=== PATIENT | male | born 1980 | race Caucasian/White ===

== ENCOUNTER → 2024-07-30 09:50 | Outpatient (REF) | payer OTHER, SELFPAY | LOC: HWRAD 09:50 | PROVIDERS: ATTENDING PHYSICIAN Nurse Practitioner Family | DX: R74.8 Abnormal levels of other serum enzymes (principal) | CPT/HCPCS: 76700 ==

== ENCOUNTER → 2024-09-03 07:42 | Outpatient (REF) | payer OTHER, SELFPAY | LOC: RAD 07:42 | PROVIDERS: ATTENDING PHYSICIAN Nurse Practitioner Family; FAMILY PHYSICIAN Family Medicine | DX: R10.9 Unspecified abdominal pain (principal) | CPT/HCPCS: 74177; Q9967 ==

== ENCOUNTER 2025-04-16 22:46 | Emergency (ER) | payer BC, SELFPAY ==
[2025-04-16 22:51] VITALS: BP 132/80
--- NOTE | 2025-04-17 02:33 | ED.GENMED ---
History of Present Illness
General
Chief Complaint: Eye Problems
Source: patient
Exam Limitations: none
Time Seen by Provider: 04/17/25 02:19
Nursing documentation reviewed up to this point in time: agreed with
History of Present Illness
History of Present Illness:
Note:
CHIEF COMPLAINT(S)
Irritation and burning sensation in the left eye.
HISTORY OF PRESENT ILLNESS
The patient is a 45-year-old male presenting with a complaint of irritation and a constant burning sensation in the left eye, which began yesterday. The patient denies any discharge from the eye. He describes the eye as feeling dry and sore. There
is no use of contact lenses. The patient denies recent coughing but admits to experiencing some allergies. The patient attempted to alleviate symptoms with eye drops, which reportedly increased discomfort. Upon examination, inflammation was noted,
and topical anesthetic drops (tetracaine) were applied to the eye for numbing, which initially caused burning but subsequently provided relief.
PHYSICAL EXAM
General: Alert, no acute distress.
Ocular: scleral injection bilateral, perrla, eomi, no fb or fluorescin uptake.
Skin: Warm, dry.
Head: Normocephalic, atraumatic.
Neck: Supple, trachea midline.
Eye, Ears, Nose, Mouth, and Throat: Oral mucosa moist.
Cardiovascular: Normal peripheral perfusion. No edema.
Respiratory: Respirations are non-labored.
Gastrointestinal: Abdomen nondistended.
Back: Normal range of motion, normal alignment.
Musculoskeletal: Normal range of motion, normal strength.
Neurological: Alert and oriented to person, place, time, and situation. No focal neurological deficit observed.
Psychiatric: Cooperative, appropriate mood and affect.
PLAN
The patient will be treated with antibiotic eye drops for the left eye. The patient was advised against rubbing the eye and was educated on the proper administration of eye drops. Follow-up with an gel coat sprayer was recommended if symptoms do not
improve.
DIFFERENTIAL DIAGNOSIS
The Differential Diagnosis includes, in no particular order and is not limited to:
1. Conjunctivitis
2. Corneal abrasion
3. Foreign body in the eye
4. Dry eye syndrome
5. Allergic conjunctivitis
6. Uveitis
7. Blepharitis
8. Corneal ulcer
9. Episcleritis
10. Keratitis
CARE-UPDATE
04/17/25 - 02:40
Patient exhibits no foreign bodies or conjunctival abrasions. Notable intense bilateral thorough injection observed. No forcing uptake. Treatment plan includes application of rickermicine ointment. Schedule follow-up appointment with ophthalmology
for further evaluation and management.
Disposition:
SUMMARY OF ENCOUNTER
The patient, a 45-year-old male, presented with irritation and a burning sensation in the left eye, which began yesterday. There is no discharge noted from the eye, but it feels dry and sore. The patient denies using contact lenses. They have
experienced some allergies recently. Eye drops increased discomfort when used, and upon examination, inflammation was observed. Topical tetracaine drops were applied initially causing burning but then provided relief.
DISPOSITION
Discharge.
ASSESSMENT
The patient has been diagnosed with bilateral conjunctivitis based on the symptoms presented and the physical examination findings.
EMERGENCY TREATMENTS ADMINISTERED
Topical anesthetic drop, tetracaine, was used for numbing the eye upon examination.
PLAN
The patient will be treated with antibiotic eye ointment, specifically chloramphenicol (Orthomacin) ointment, prescribed for the left eye, to address the conjunctivitis. Advised to refrain from rubbing the eye and instructed on the proper
administration of the ointment. Follow-up with an gel coat sprayer is recommended if symptoms do not improve.
PATIENT EDUCATION AND COUNSELING
The patient was educated on the importance of not rubbing the eyes and the correct administration of the prescribed eye ointment. Information regarding potential allergic reactions or worsening symptoms was provided, along with instructions to seek
further medical care if needed.
FOLLOW-UP INSTRUCTIONS
The patient should arrange a follow-up with an gel coat sprayer if symptoms persist or worsen.
MEDICATION RECONCILIATION
A prescription for chloramphenicol (Orthomacin) eye ointment has been given for treating the infection.
MEDICAL DECISION MAKING
-Chronic conditions affecting care: The differential diagnosis included conjunctivitis, corneal abrasion, foreign body in the eye, dry eye syndrome, allergic conjunctivitis, uveitis, blepharitis, corneal ulcer, episcleritis, and keratitis. Based on
the examination, bilateral conjunctivitis was determined to be the most likely diagnosis.
-Data:
Category 1
External record reviewed: I reviewed the diagnosis, bilateral conjunctivitis, and recommended follow-up with ophthalmology.
Category 3
Discussion of management with the patients primary care provider is implied, with instructions for an gel coat sprayer follow-up.
-Risk:
Prescription medication was prescribed�chloramphenicol (Orthomacin) eye ointment. The patient was determined to be safe for outpatient management with close follow-up.
DIAGNOSIS
Bilateral conjunctivitis (H10.33).
Phy Exam
Physical Exam
Physical Exam:
.
Course
Orders/Labs/Results
Orders:
Orders
04/17/25 02:33
Visual Acuity- Treatment ONCE
Erythromycin (Ilotycin) [Erythromycin 0.5% Ophthalmic Ointment] See Dose Instructions OPHTH NOW STA
Vital Signs
Initial and Last Documented VS:
Initial Vital Signs
Temp Pulse Resp BP Pulse Ox
98.5 F 82 16 132/80 97
04/16/25 22:51 04/16/25 22:51 04/16/25 22:51 04/16/25 22:51 04/16/25 22:51
Last Documented Vital Signs
Temp Pulse Resp BP Pulse Ox
98.5 F 82 18 132/80 97
04/16/25 22:51 04/16/25 22:51 04/17/25 00:01 04/16/25 22:51 04/17/25 02:33
*Pulse Oximetry
SaO2: 97
Oxygen Mode of Delivery: Room air
Patient hypoxic: no
*Critical Care Note
Total Time (30-74mins, 75-104mins- exclusive of procedures): Not Applicable
ED Attending Note
-
Portions of this chart may have been created with voice recognition software.� Occasional wrong word or��sound alike� substitutions may have occurred due to the inherent limitations of voice recognition software.
Discharge Plan
Departure
Patient Disposition: Home (Routine Discharge)
Date of Disposition: 04/17/25
Time of Disposition: 02:35
Patient with high blood pressure during this ER visit?: Yes
Condition: Good
Discharge Problem:
Bilateral conjunctivitis
Instructions: Conjunctivitis (Pinkeye) (DC)
Prescriptions:
New
erythromycin 5 mg/gram (0.5 %) ointment
0.5 inch ophthalmic (eye) TID 7 Days Qty: 3.5 0RF
Referrals:
Zeenat Cruz CRNP [Family Provider, Family Practice]
Talha Goldstein MD [Active, Ophthalmology] - Call in 1-3 days for appt
Interventions
Interventions:
*Risk Screen - Suicide Last Done: 04/16/25 22:51
*General Assessment Last Done: 04/17/25 00:01
*Neglect/Abuse Screening Last Done: 04/16/25 22:51
*ED- Fall Risk Assessment Last Done: 04/16/25 22:51
*ED COVID-19 Vaccine History Last Done: 04/16/25 22:51
Discharge Date and Time
Print Language: LATVIAN
[2025-04-17] MEDS: ERYTHROMYCIN 0.5% OPHTHALMIC OINTMENT 1 APPLIC OPHTH (02:51)
[2025-04-17 02:57] VITALS: BP 138/72
== END 2025-04-17 02:57 | disposition home or self-care (01) ==
LOC: EMR 22:46
PROVIDERS: EMERGENCY PHYSICIAN Emergency Medicine; FAMILY PHYSICIAN Nurse Practitioner Family
DX: H10.9 Unspecified conjunctivitis (principal)
CPT/HCPCS: 99283